=== PATIENT | male | born 1970 ===

== ENCOUNTER 2018-09-09 19:21 | Emergency (ER) | payer OTHER ==
[~2018-09-09] VITALS: Ht 170.2 cm; Wt 75.0 kg
[2018-09-09] MEDS ORDERED: KETOROLAC 60MG/2ML VIAL IM ONE (21:00)
[2018-09-09 22:15] VITALS: BP 131/86
== END 2018-09-09 22:17 | disposition home or self-care (01) ==
LOC: ER 19:21
DX: M79.671 Pain in right foot (principal); M79.89 Other specified soft tissue disorders; R03.0 Elevated blood-pressure reading, without diagnosis of hypertension
CPT/HCPCS: 73630; 96372; 99283; J1885